=== PATIENT | male | born 1980 | race African-American/Black ===

== ENCOUNTER 2016-09-19 08:29 | Inpatient (IN) | payer OTHER, BC ==
[~2016-09-19] VITALS: Ht 182.9 cm; Wt 93.9 kg
[~2016-09-19 08:29] MED LIST: LANTUS100 UNIT/1 SQ; NOVOLOG 10100 UNITS/ SQ
[2016-09-19 10:32] LABS: WHITE BLOOD COUNT 13.6 K/UL (4.5-11.0)
[2016-09-19 10:36] LABS: BUN/CREATININE RATIO 12 (0-10)
[2016-09-19] MEDS ORDERED: LORTAB 5-325 M1 EACH PO (17:45)
[2016-09-19] MEDS ORDERED: LANTUS100 UNIT/1 SQ (17:46)
[2016-09-19] MEDS ORDERED: LIPITOR TAB 1010 MG PO (17:47)
[2016-09-19] MEDS ORDERED: FENOFIBRATE145 MG PO (17:48)
[2016-09-19] MEDS ORDERED: NOVOLOG FL100 UNIT/1 SQ (17:49)
[2016-09-19 18:41] LABS: BUN/CREATININE RATIO 12 (0-10)
[2016-09-19 22:28] LABS: BUN/CREATININE RATIO 13 (0-10)
[2016-09-20 02:41] LABS: BUN/CREATININE RATIO 13 (0-10)
[2016-09-20 06:19] LABS: HEMOGLOBIN 15.8 gm/dl (14.0-17.5); RED BLOOD COUNT 5.09 M/UL (4.20-5.50)
[2016-09-20 06:33] LABS: BUN/CREATININE RATIO 13 (0-10)
[2016-09-20 11:10] LABS: BUN/CREATININE RATIO 12 (0-10)
[2016-09-20 17:53] LABS: BUN/CREATININE RATIO 10 (0-10)
[2016-09-20 23:29] LABS: BUN/CREATININE RATIO 9 (0-10)
[2016-09-21 05:07] LABS: HEMOGLOBIN 15.7 gm/dl (14.0-17.5); RED BLOOD COUNT 5.09 M/UL (4.20-5.50); WHITE BLOOD COUNT 13.8 K/UL (4.5-11.0)
[2016-09-21 05:21] LABS: BUN/CREATININE RATIO 9 (0-10)
[2016-09-21 12:37] LABS: BUN/CREATININE RATIO 7 (0-10)
[2016-09-21 17:17] LABS: BUN/CREATININE RATIO 7 (0-10)
[2016-09-21 23:45] LABS: BUN/CREATININE RATIO 8 (0-10)
[2016-09-22 05:57] LABS: BUN/CREATININE RATIO 7 (0-10)
[2016-09-22 11:41] LABS: BUN/CREATININE RATIO 6 (0-10)
== END 2016-09-22 11:55 | disposition left against medical advice (07) | DRG 438 ==
LOC: ER1 08:29 → ZEROF 12:32 → CCU 12:32
PROVIDERS: Emergency Medicine; Specialist/Technologist Athletic Trainer; ADMIT Family Medicine
DX: K85.90 Acute pancreatitis without necrosis or infection, unspecified (principal); E08.10 Diabetes mellitus due to underlying condition with ketoacidosis without coma; K86.1 Other chronic pancreatitis; I48.0 Paroxysmal atrial fibrillation; K86.89 Other specified diseases of pancreas; E78.1 Pure hyperglyceridemia; E83.42 Hypomagnesemia; K59.00 Constipation, unspecified; Z72.0 Tobacco use; Z90.411 Acquired partial absence of pancreas; Z79.4 Long term (current) use of insulin; Z79.891 Long term (current) use of opiate analgesic; Z98.890 Other specified postprocedural states; Z82.49 Family history of ischemic heart disease and other diseases of the circulatory system
CPT/HCPCS: ECHO; 36415; 80048; 80053; 80061; 81001; 82009; 82043; 82550; 82553; 82800; 82962; 83036; 83605; 83690; 83735; 83874; 84100; 84439; 84443; 84478; 84484; 85025; 85027; 93005; 93306; 96361; 96365; 96375; 96376; 99291; J1815; J2405; J2550; J7050